=== PATIENT | female | born 1955 | race Caucasian/White ===

== ENCOUNTER 2017-03-29 16:28 | Emergency (ER) | payer BC | END 2017-03-29 18:06 | disposition home or self-care (01) | LOC: ER 16:28 | DX: S93.401A Sprain of unspecified ligament of right ankle, initial encounter (principal); M70.21 Olecranon bursitis, right elbow; I10 Essential (primary) hypertension; F32.9 Major depressive disorder, single episode, unspecified; Z23 Encounter for immunization; Z79.899 Other long term (current) drug therapy; Z88.5 Allergy status to narcotic agent; Z88.0 Allergy status to penicillin; W18.30XA Fall on same level, unspecified, initial encounter | CPT/HCPCS: 90471 ==

== ENCOUNTER 2017-05-04 20:13 | Emergency (ER) | payer BC | END 2017-05-04 23:13 | disposition critical access hospital (66) | LOC: ER 20:13 | DX: K56.60 Unspecified intestinal obstruction (principal); F32.9 Major depressive disorder, single episode, unspecified; I10 Essential (primary) hypertension; Z79.899 Other long term (current) drug therapy; Z90.13 Acquired absence of bilateral breasts and nipples; Z88.0 Allergy status to penicillin; Z88.5 Allergy status to narcotic agent | CPT/HCPCS: 96361; 96374; 96375 ==

== ENCOUNTER 2017-05-04 20:13 | Observation (INO) | payer BC ==
[~2017-05-04] VITALS: Ht 162.6 cm; Wt 68.0 kg
== END 2017-05-05 15:10 | disposition home or self-care (01) ==
LOC: ER 20:13 → MED 23:14
PROVIDERS: ADMIT Internal Medicine
DX: K56.60 Unspecified intestinal obstruction (principal); R19.7 Diarrhea, unspecified; I10 Essential (primary) hypertension; J30.9 Allergic rhinitis, unspecified; Z85.3 Personal history of malignant neoplasm of breast; Z88.0 Allergy status to penicillin; Z88.6 Allergy status to analgesic agent; Z79.899 Other long term (current) drug therapy; Z98.890 Other specified postprocedural states
CPT/HCPCS: 36415; 74020; 96361; 96374; 96375; 96376; G0378; J1650; J2550